=== PATIENT | female | born 1990 | race Caucasian/White ===

== ENCOUNTER → 2018-02-14 07:00 | Outpatient (CLI) | payer MEDICAID, SELFPAY ==
[2018-02-18 14:14] LABS: HPV Reflexed? NOT INDICATED
== END ==
PROVIDERS: Family Provider Obstetrics & Gynecology; PCP Obstetrics & Gynecology; Visit Provider Obstetrics & Gynecology
DX: Z12.4 Encounter for screening for malignant neoplasm of cervix (principal)
CPT/HCPCS: 88175; G0145

== ENCOUNTER → 2020-09-25 14:07 | Outpatient (CLI) | payer MEDICAID, SELFPAY ==
--- NOTE | 2020-09-25 14:45 | RAD_ITS ---
STUDY: X-RAY - PELVIS AND LEFT HIP REASON FOR EXAM: Female, 30 years old. PAIN TECHNIQUE: 3 views of the pelvis and hip. COMPARISON: None. FINDINGS: There is a non-specific bowel gas pattern. Normal visualized soft tissue structures. Normal bilateral iliac wings, sacroiliac joints and visualized sacrum. Normal bilateral superior and inferior pubic rami. Normal pubic symphysis. Normal bilateral ischial tuberosities. Normal visualized femoral head. Normal acetabulum. Normal hip joint. RAD/HIP, UNI W/ Pelvis 2-3 Views IMPRESSION: Normal x-ray examination of the pelvis and hip. Electronically Signed: Julio Sellers MD at 15:41 EDT , Service support ,
== END ==
PROVIDERS: PCP Nurse Practitioner Primary Care; Visit Provider Nurse Practitioner Primary Care
DX: M25.552 Pain in left hip (principal)
CPT/HCPCS: 73502

== ENCOUNTER → 2021-02-24 16:39 | Outpatient (CLI) | payer MEDICAID, SELFPAY ==
[2021-03-02 21:48] LABS: HPV APTIMA, High Risk Negative (Negative)
== END ==
PROVIDERS: PCP Nurse Practitioner Primary Care; Visit Provider Obstetrics & Gynecology
DX: Z12.4 Encounter for screening for malignant neoplasm of cervix (principal)
CPT/HCPCS: 87624; 88175; G0145

== ENCOUNTER → 2021-12-09 | Outpatient (CLI) | payer MEDICAID, SELFPAY ==
[2021-12-13 11:07] LABS: Bluegrass, Kentucky <0.10 kU/L (Class 0); Cashew <0.10 kU/L (Class 0); Gluten <0.10 kU/L (Class 0)
[2021-12-13 13:02] LABS: Garlic <0.10 kU/L (Class 0); Milk (Cow) <0.10 kU/L (Class 0)
== END | disposition home or self-care (01) ==
PROVIDERS: PCP Nurse Practitioner Primary Care; Referring Provider Otolaryngology Otolaryngology/Facial Plastic Surgery; Visit Provider Otolaryngology Otolaryngology/Facial Plastic Surgery
DX: T78.40XA Allergy, unspecified, initial encounter (principal)
CPT/HCPCS: 86003